=== PATIENT | female | born 1945 | race Caucasian/White ===

== ENCOUNTER 2019-07-05 21:28 | Emergency (ER) | payer SELFPAY ==
[2019-07-05] MEDS ORDERED: Nitroglycerin 2% Oint 1 GM UD Packet TOP ONE (22:02)
--- NOTE | 2019-07-05 22:09 | EDM.PDOC ---
ED HPI GENERAL MEDICAL PROBLEM - General Chief Complaint: Cardiovascular Problem Stated Complaint: ASTMA ATTACK Time Seen by Provider: 07/05/19 21:40 Source of Information: Reports: Patient History Limitations: Reports: No Limitations - History of Present Illness INITIAL COMMENTS - FREE TEXT/NARRATIVE: 74-year-old white female that presents to ER with ongoing shortness breath for the last week. Patient feels like she's been having short of breath, swelling, over the last week since Thanks. She feels like at night when she tries to lay down she is smothering. During the day when she tries to do her normal daily activities she cannot she no longer can walk about 10-15 feet before she gets short of breath were used to she could walk all over the house and outside for hours at a time. She also states she has been having the cough with the shortness of breath. She has gained over 10 pounds in the last week and noticed that her feet are now swelling along with her ankles. She has never had any of these problems before. She has never seen a community living specialist or primary care provider in regards to these issues and she does not currently have a primary care provider. She has no other complaints at this time Duration: Week(s): Improves with: Reports: Rest Worsens with: Reports: Movement Associated Symptoms: Reports: Cough, Shortness of Breath. 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 Denies: Fever, Chills, Malaise, Weakness HEENT: Reports: No Symptoms Respiratory: Reports: Shortness of Breath, Cough. Denies: Wheezing, Pleuritic Chest Pain Cardiovascular: Reports: Dyspnea on Exertion, Edema, Orthopnea (FRAGOSO), PND, Other Endocrine: Reports: Fatigue GI/Abdominal: Reports: No Symptoms : Reports: No Symptoms Skin: Reports: No Symptoms Neurological: Reports: No Symptoms Psychiatric: Reports: No Symptoms Hematologic/Lymphatic: Reports: No Symptoms. Denies: Easy Bleeding, Easy Bruising Immunologic: Reports: No Symptoms ED EXAM, GENERAL - Physical Exam Exam: See Below Exam Limited By: No Limitations General Appearance: Alert, WD/WN, No Apparent Distress, Other (Patient is able to converse in about 10-12 word sentences) Eye Exam: Bilateral Eye: EOMI, PERRL Ears: Normal External Exam, Hearing Grossly Normal Nose: Normal Inspection, Normal Mucosa, No Blood Throat/Mouth: Normal Inspection, Normal Lips, Normal Teeth, Normal Gums, Normal Oropharynx, Normal Voice, No Airway Compromise Respiratory/Chest: No Respiratory Distress, Lungs Clear, Normal Breath Sounds, No Accessory Muscle Use, Chest Non-Tender. No: Rales, Rhonchi, Wheezing Cardiovascular: Normal Peripheral Pulses, Regular Rate, Rhythm, No Gallop, No Murmur (Positive JVD mild with hepatojugular reflux), No Rub, JVD. No: No Edema , No JVD GI/Abdominal: Normal Bowel Sounds, Soft, Non-Tender, No Organomegaly, No Distention Back Exam: Normal Inspection, Full Range of Motion, Other (There is a noted nickel size abrasion looking wound to the right scapular area patient states that her daughter squeezed a cyst there approximate 4 days ago) Extremities: Normal Range of Motion, Non-Tender, Other (3+ bilateral pedal edema ). No: Normal Inspection, No Pedal Edema Neurological: Alert, Oriented, CN II-XII Intact, Normal Cognition, Normal Gait, No Motor/Sensory Deficits Psychiatric: Normal Affect, Normal Mood Skin Exam: Warm, Intact, Normal Color, No Rash Course - Vital Signs Text/Narrative:: CBC BMP BNP chest x-ray EKG half inch Nitropaste applied cxr pos cardiomegaly with chf Patient with BNP of 5200 diagnosed with acute CHF new-onset. Patient elected to go to [facility] call was placed for transfer at [address] Dimitrios Mendez at [facility] ER will accept transfer a patient Patient was given half inch Nitropaste with good relief she will also be given 20 mg Lasix IV and transferred via EMS ACLS - Orders/Labs/Meds Orders: Active Orders 24 hr Category Date Time Status Chest 1V Frontal [CR] Stat Exams 07/05/19 22:02 Taken Labs: Laboratory Tests 07/05/19 07/05/19 Range/Units 19:11 19:11 WBC 8.1 (4.0-10.0) x10^3/uL RBC 4.31 (4.00-5.50) x10^6/uL Hgb 12.0 (12.0-16.0) g/dL Hct 37.2 (33.0-47.0) % MCV 86.3 (78.0-93.0) fL MCH 27.8 (26.0-32.0) pg MCHC 32.3 (32.0-36.0) g/dL RDW Coeff of Daniela 16.6 H (10.0-15.0) % Plt Count 210 (130-400) x10^3/uL Neut % (Auto) 71.0 (50.0-80.0) % Lymph % (Auto) 20.7 L (25.0-50.0) % Storey % (Auto) 7.0 (2.0-11.0) % Eos % (Auto) 0.9 (0.0-4.0) % Baso % (Auto) 0.4 (0.2-1.2) % Sodium 142 (136-145) mmol/L Potassium 4.4 (3.5-5.1) mmol/L Chloride 106 (98-107) mmol/L Carbon Dioxide 21 (21-32) mmol/L Anion Gap 19.4 (10-20) mmol/L BUN 18 (7-18) mg/dL Creatinine 0.8 (0.55-1.02) mg/dL Est Cr Clr Drug Dosing TNP Estimated GFR (MDRD) > 60 Glucose 100 (74-106) mg/dL Calcium 8.4 L (8.5-10.1) mg/dL NT-Pro-B Natriuret Pep 5972 H (<=450) pg/mL Meds: Medications Discontinued Medications Generic Name Dose Route Start Last Admin Trade Name Freq PRN Reason Stop Dose Admin Nitroglycerin 1 gm 07/05/19 22:02 Nitro-Bid 2% TOP 07/05/19 22:03 ONETIME ONE Departure - Departure Time of Disposition: 23:10 Disposition: DC/Tfer to Acute Hospital 02 Condition: Good Clinical Impression: CHF (congestive heart failure), SOB (shortness of breath) - Discharge Information *PRESCRIPTION DRUG MONITORING PROGRAM REVIEWED*: No *COPY OF PRESCRIPTION DRUG MONITORING REPORT IN PATIENT KANIKA: No Referrals: PCP,None [Primary Care Provider] - Forms: ED Department Discharge, Interfacility Transfer EMTALA - Problem List & Annotations (1) CHF (congestive heart failure) SNOMED Code(s): 06147599 Code(s): I50.9 - HEART FAILURE, UNSPECIFIED Status: Acute Current Visit: Yes (2) SOB (shortness of breath) SNOMED Code(s): 765205594 Code(s): R06.02 - SHORTNESS OF BREATH Status: Acute Current Visit: Yes - My Orders Last 24 Hours: My Active Orders 07/05/19 22:02 Chest 1V Frontal [CR] Stat - Assessment/Plan Last 24 Hours: My Active Orders 07/05/19 22:02 Chest 1V Frontal [CR] Stat
[2019-07-05 22:53] LABS: CHLORIDE,CL 106 mmol/L (98-107); SODIUM,NA 142 mmol/L (136-145)
[2019-07-05 22:54] LABS: ANION GAP 19.4 mmol/L (10-20)
[2019-07-05] MEDS ORDERED: Furosemide 20 MG/2 ML VIAL IV ONE (23:19)
--- NOTE | 2019-07-06 07:58 | CR ---
[id number] RAD/RAD Chest PA or AP 1V EXAM: RAD Chest PA or AP 1V INDICATION: SHORT OF BREATH, NEW ONSET, CHF COMPARISON: None. DISCUSSION: Cardiomediastinal silhouette is enlarged. Central pulmonary vascular congestion. Small bilateral pleural effusions. Pulmonary hyperinflation. No pneumothorax. IMPRESSION: Central pulmonary vascular congestion in the setting of cardiomegaly with small bilateral pleural effusions. Trevor Yu DO 07/06/19 0757 Thank you for allowing us to participate in the care of your patient.
== END 2019-07-06 00:55 | disposition short-term general hospital (02) ==
LOC: VM.ED 21:28
DX: I50.9 Heart failure, unspecified (principal)
CPT/HCPCS: 71045; 80048; 83880; 85025; 93005; 96374; 99283; 99285; A9270; J1940

== ENCOUNTER 2024-08-14 10:53 | Emergency (ER) | payer MEDICARE, OTHER ==
[2024-08-14] MEDS ORDERED: Sodium Chloride 0.9% 10 ML Syringe FLUSH PRN ×2 (11:44→12:24)
[2024-08-14 12:13] LABS: A/G RATIO 0.86; ALANINE AMINOTRANSFERASE,ALT 20 U/L (14-59); ALBUMIN 3.1 g/dL (3.4-5.0); ALKALINE PHOSPHATASE 67 U/L (46-116); ASPARTATE AMNIOTRANSFERASE,AST 23 U/L (15-37); BILIRUBIN TOTAL 0.6 mg/dL (0.2-1.0); BLOOD UREA NITROGEN,BUN 30 mg/dL (7-18); CALCIUM 9.1 mg/dL (8.5-10.1); CARBON DIOXIDE,CO2 22 mmol/L (21-32); CHLORIDE,CL 101 mmol/L (98-107); CREATININE 1.4 mg/dL (0.55-1.02); GLUCOSE RANDOM 121 mg/dL (70-99); POTASSIUM,K 3.7 mmol/L (3.5-5.1); PROTEIN TOTAL,TP 6.7 g/dL (6.4-8.2); SODIUM,NA 137 mmol/L (136-145)
[2024-08-14 12:15] LABS: ANION GAP 17.7 mmol/L (5-15); ESTIMATED GFR 38 mL/min (>=60)
[2024-08-14 12:17] LABS: HEMATOCRIT 33.8 % (33.0-47.0); HEMOGLOBIN 11.5 g/dL (12.0-16.0); MEAN CORPUSCULAR HEMOGLOBIN 31.7 pg (26.0-32.0); MEAN CORPUSCULAR VOLUME 93.1 fL (78.0-93.0); PLATELET COUNT,PLT 221 x10^3/uL (130-400); RED BLOOD CELL COUNT 3.63 x10^6/uL (4.00-5.50)
[2024-08-14 12:18] LABS: WHITE BLOOD CELL COUNT,WBC 27.8 x10^3/uL (4.0-10.0)
[2024-08-14] MEDS: methylPREDNISolone Sodium Succinate 125 MG/2 ML SDV IVPUSH ONE (12:30)
[2024-08-14] MEDS: Acetaminophen 500 MG Tab PO ONE (12:30)
[2024-08-14] MEDS: Lactated Ringers 1,000 ML IV ONE (12:30)
[2024-08-14 12:35] LABS: INR 1.1 (0.9-1.1); PROTHROMBIN TIME 11.4 SEC (8.9-11.5)
[2024-08-14] MEDS: Aspirin 81 MG Tab.Chew PO ONE (12:38)
[2024-08-14] MEDS: Cefepime 2 GM Vial IVPUSH ONE (12:39)
[2024-08-14] MEDS: VANCOmycin 1.5 GM/300 ML 1.5 GM in Premix Bag 1 BAG IV ONE (12:40)
[2024-08-14 12:42] LABS: LACTIC ACID 1.3 mmol/L (0.4-2.0)
[2024-08-14 12:45] LABS: AMYLASE 23 U/L (25-115); LIPASE 16 U/L (19-71)
[2024-08-14 13:15] LABS: BAND PERCENT MAN 1 % (0-6); LYMPHOCYTES ABSOLUTE MAN 0.8 x10^3/uL (1.0-4.8); LYMPHOCYTES PERCENT MAN 3 % (25-50); MONOCYTES ABSOLUTE MAN 1.1 x10^3/uL (0.0-0.8); MONOCYTES PERCENT MAN 4 % (2-11); NEUTROPHILS ABSOLUTE MAN 25.9 x10^3/uL (1.8-7.7); SEG NEUTROPHILS PERCENT MAN 92 % (50-80)
[2024-08-14 13:25] LABS: APPEARANCE,URINE CLEAR (CLEAR); BILIRUBIN,URINE SMALL (NEGATIVE); COLOR,URINE YELLOW (YELLOW); GLUCOSE,URINE NEGATIVE (NEGATIVE); KETONES,URINE 80 mg/dL (NEGATIVE); LEUKOCYTE ESTERASE,URINE NEGATIVE (NEGATIVE); NITRITE,URINE NEGATIVE (NEGATIVE); OCCULT BLOOD,URINE NEGATIVE (NEGATIVE); PROTEIN,URINE 30 mg/dL (NEGATIVE); UROBILINOGEN,URINE 0.2 EU/dL (0.2)
[2024-08-14 13:33] LABS: BACTERIA,URINE RARE /HPF (NOT SEEN); RBC,URINE 0-5 /HPF (NOT SEEN); SQUAMOUS EPITHELIAL CELLS,UR FEW /HPF (NOT SEEN); WBC,URINE 0-5 /HPF (NOT SEEN)
[2024-08-14] MEDS: Norepinephrine Bit/D5W Premix 250 ML IV SCH (14:09)
[2024-08-15] MEDS: Norepinephrine Bit/D5W Premix 250 ML ONE (11:25)
== END 2024-08-14 15:50 | disposition short-term general hospital (02) ==
LOC: VM.ED 10:53
DX: A41.9 Sepsis, unspecified organism (principal); I95.89 Other hypotension; M54.50 Low back pain, unspecified; R10.31 Right lower quadrant pain; R10.32 Left lower quadrant pain; R79.89 Other specified abnormal findings of blood chemistry; J45.909 Unspecified asthma, uncomplicated; Z79.84 Long term (current) use of oral hypoglycemic drugs; Z79.899 Other long term (current) drug therapy
CPT/HCPCS: 36415; 71045; 72131; 74176; 80053; 81001; 82150; 83605; 83690; 83735; 83880; 84484; 85025; 85379; 85610; 85730; 87040; 93010; 96365; 96366; 96367; 96375; 99284; 99285-25; A9270-GY; C1758; J0692; J2919; J3372; J7120